=== PATIENT | male | born 1980 | race Hispanic/Latino ===

== ENCOUNTER 2019-12-05 13:57 | Emergency (ER) | payer SELFPAY ==
--- NOTE | 2019-12-05 14:51 | Emergency Department Report ---
ED General Adult HPI - General Chief complaint: Psych Stated complaint: SUCIDIAL/HOMELESS PUI?: No Time Seen by Provider: 12/05/19 14:41 Source: patient, EMS ( EMS documentation not available at time of chart dictation ), RN notes reviewed, old records reviewed Mode of arrival: Ambulatory Limitations: No Limitations - History of Present Illness Initial comments: The patient was evaluated in the emergency department for symptoms described in the history of present illness. He/she was evaluated in the context of the global COVID-19 pandemic, which necessitated consideration that the patient might be at risk for infection with the virus that causes COVID-19. Institutional protocols and algorithms that pertain to the evaluation of patients at risk for COVID-19 are in a state of rapid change based on information released by regulatory bodies including the CDC and federal and state organizations. These policies and algorithms were followed during the patient's care in the emergency department. Please note that these policies, procedures and recommendations changed on a rapid basis. The patient is a 39-year-old gentleman who is not known to myself previously. He is brought to the hospital by emergency medical services. Patient was just seen at a local hospital today, [facility]. Ap parently, the patient was brought there by local law enforcement, when he was caught trying to steal alcohol. Apparently, law enforcement told the patient he could be taken to the hospital, or be taken to alf. The patient opted to go to the hospital. At the hospital, he reportedly complained of depression and vague suicidality without plan. He was reportedly not evaluated by a psychiatrist, a nd did not have laboratory studies obtained. He was reportedly observed in this department for a few hours, and then discharged. At some point in time, the patient recontacted emergency medical services, and complains to me of vague suicidality. He states he does not currently have access to guns or to firearms. He states he has not tried to overdose. He states he is homeless, and that he does not have any local family members. He states that he is hungry "can I watch TV and eat food?" Patient states he has been suicidal for "a long time." -: week(s) Improves with: none Worsens with: none - Related Data Allergies Allergy/AdvReac Type Severity Reaction Status Date / Time No Known Allergies Allergy Unverified 12/05/19 14:30 ED Review of Systems ROS: Stated complaint: SUCIDIAL/HOMELESS Other details as noted in HPI Constitutional: denies: fever Eyes: denies: eye discharge ENT: denies: epistaxis Respiratory: denies: cough Cardiovascular: denies: syncope Gastrointestinal: denies: abdominal pain Genitourinary: denies: dysuria Musculoskeletal: myalgia Psychiatric: depression, suicidal thoughts ED Past Medical Hx - Past Medical History Previous Medical History?: Yes Hx Psychiatric Treatment: Yes (depression,alcohol abuse) Additional medical history: chronic back, TBI x2 - Social History Smoking Status: Never Smoker Substance Use Type: None ED Physical Exam - General Limitations: No Limitations General appearance: alert, in no apparent distress - Head Head exam: Present: atraumatic, normocephalic - Eye Eye exam: Present: normal appearance, EOMI. Absent: nystagmus - ENT ENT exam: Present: normal exam, normal orophraynx, mucous membranes moist, normal external ear exam - Neck Neck exam: Present: normal inspection, full ROM. Absent: tenderness, meningismus - Respiratory Respiratory exam: Present: normal lung sounds bilaterally. Absent: respiratory distress, wheezes, rales, rhonchi, stridor, decreased breath sounds - Cardiovascular Cardiovascular Exam: Present: regular rate, normal rhythm, normal heart sounds. Absent: bradycardia, tachycardia, irregular rhythm, systolic murmur, diastolic murmur, rubs, gallop - GI/Abdominal GI/Abdominal exam: Present: soft. Absent: distended, tenderness, guarding, rebound, rigid, pulsatile mass - Rectal Rectal exam: Present: deferred - Extremities Exam Extremities exam: Present: normal inspection, full ROM, other (2+ pulses noted in the bilateral upper extremities. There is no long bony tenderness. The pelvis is stable. The muscular compartments are soft.). Absent: pedal edema, calf tenderness - Back Exam Back exam: Present: normal inspection, full ROM. Absent: tenderness, CVA tenderness (R), CVA tenderness (L), paraspinal tenderness, vertebral tenderness - Neurological Exam Neurological exam: Present: alert, oriented X3, other (No facial droop. Tongue midline. Extraocular movements intact bilaterally. Facial sensation intact to light touch in V1, V2, V3 distribution bilaterally. 5 and a 5 strength in 4 extremities. Sensation intact to light touch in 4 extremities.) - Psychiatric Psychiatric exam: Present: depressed, suicidal ideation - Skin Skin exam: Present: warm, dry, intact, normal color. Absent: rash ED Course Vital Signs 12/05/19 14:52 Temperature 98.3 F Pulse Rate 78 Respiratory 18 Rate Blood Pressure 110/80 [Right] O2 Sat by Pulse 96 Oximetry - Reevaluation(s) Reevaluation #1: 12/05/19 15:46 Laboratory studies unremarkable at this time, there is no evidence of emergent metabolic or toxicologic ingestion. At this point time, patient does not appear to have an emergent medical condition that would require hospitalization. He does not have a medical contraindication to discharge, psychiatric consultation, evaluation, and outpatient placement. Reevaluation #2: 12/05/19 19:03 Patient seen in conjunction with our mental health liaison/coordinator, who agrees that patient does not meet criteria for 1013 hold or involuntary placement. ED Medical Decision Making - Lab Data Result diagrams: 12/05/19 15:01 12/05/19 15:01 Vital Signs 12/05/19 14:52 Temperature 98.3 F Pulse Rate 78 Respiratory 18 Rate Blood Pressure 110/80 [Right] O2 Sat by Pulse 96 Oximetry Lab Results 12/05/19 12/05/19 12/05/19 Range/Units 15:01 15:01 15:01 Hgb 14.2 (11.8-15.2) gm/dl Hct 42.7 (35.5-45.6) % Plt Count 261 (140-440) K/mm3 Sodium 140 (137-145) mmol/L Potassium 4.1 (3.6-5.0) mmol/L Chloride 103.0 (98-107) mmol/L Carbon Dioxide 24 (22-30) mmol/L Anion Gap 17 mmol/L BUN 19 (9-20) mg/dL Creatinine 0.8 (0.8-1.3) mg/dL Estimated GFR > 60 ml/min BUN/Creatinine Ratio 24 % Glucose 109 H (75-100) mg/dL Calcium 9.4 (8.4-10.2) mg/dL Magnesium 2.10 (1.7-2.3) mg/dL Total Creatine Kinase 103 (55-170) units/L Salicylates < 0.3 L (2.8-20.0) mg/dL Acetaminophen (10.0-30.0) ug/mL Plasma/Serum Alcohol (0-0.07) % 12/05/19 12/05/19 Range/Units 15:01 15:01 Hgb (11.8-15.2) gm/dl Hct (35.5-45.6) % Plt Count (140-440) K/mm3 Sodium (137-145) mmol/L Potassium (3.6-5.0) mmol/L Chloride (98-107) mmol/L Carbon Dioxide (22-30) mmol/L Anion Gap mmol/L BUN (9-20) mg/dL Creatinine (0.8-1.3) mg/dL Estimated GFR ml/min BUN/Creatinine Ratio % Glucose (75-100) mg/dL Calcium (8.4-10.2) mg/dL Magnesium (1.7-2.3) mg/dL Total Creatine Kinase (55-170) units/L Salicylates (2.8-20.0) mg/dL Acetaminophen 5.0 L (10.0-30.0) ug/mL Plasma/Serum Alcohol < 0.01 (0-0.07) % - Medical Decision Making Differential diagnosis, including but not limited to: Depression, dysthymia, malingering, homelessness, secondary gain Assessment and plan: 39-year-old gentleman, who is afebrile, with reassuring vital signs, who is clinically sober, and homeless, with vague suicidality, this is his second evaluation in the same day. Patient has nonmodifiable risk factors, such as homelessness, patient is unlikely to benefit from being placed on 1013 hold or involuntary hold, as this will reinforce maladaptive behaviors, and is not likely to benefit patient. During my evaluation, the patient presents as alert and oriented, calm, cooperative, he does not appear to be in an acute psychiatric crisis. Appropriate screening laboratory studies will be obtained to exclude toxicologic ingestion, although I seriously doubt that the patient has ingested any lethal quantity of any substance. Psychiatric consultation will be obtained, and anticipate discharge with outpatient follow-up Critical care attestation.: If time is entered above; I have spent that time in minutes in the direct care of this critically ill patient, excluding procedure time. ED Disposition Clinical Impression: Homelessness, General medical exam Depression Qualifiers: Major depression recurrence: unspecified whether recurrent Major depression episode severity: unspecified Disposition: - TO HOME OR SELFCARE Is pt being admited?: No Does the pt Need Aspirin: No Condition: Stable Additional Instructions: Please follow-up with outpatient resources that were provided to the patient. Please follow-up with an outpatient primary care doctor within the next month. Please return to the emergency room right away with new pain, worsening pain, migration of pain, projectile vomiting, change in mental status, confusion, inability to tolerate liquid feeds, new, worsened or different symptoms not present on the initial emergency room evaluation HOMELESS RESOURCES: [facility] NEED HELP? If you are in need of help or know someone who does, please contact us [email or web address] call , or come to our offices at [address] [place] [address], Thursday-Thursday beginning at 8AM. [facility] Admission at 7am Thu to Thu Address: [address] [place] [address] Client Engagement [phone] Regular program admission occurs Thursday through Thursday at 7:00 amand operates on a first come, first serve basis.Because we cant anticipate program availability in advance andprogram spots are in high demand, we recommend arriving early. Space fills up fast! Next steps can include: Assignment to a [facility] program bed Connection to and placement in a partner program, or Referral to a partner agency [facility]: [facility] Ram[facility] Address: [address] [place] [address] How do I join the [facility] housing program? Our housing programs are offered based on availability. If you are looking to participate in our housing program, simply call [phone] to find out if we have available space. Since we do receive many calls, please allow up to 48 w[address]y rs for one of our housing specialists to return your call. If we do not have vacancies, we suggest callingthe [facility] hotline at 211 for additional housing options. [facility] Admission at 4:30pm daily Address: [address] [place] [id number] Outpatient COMMUNITY Behavioral Health Resources: [facility] ([facility]) [address] [place] [address] / [phone] Thursday thru Thursday - 8am - 5pm [facility] Address: [address] [place], [place] Thursday thru Thursday- 7am-2pm [facility] Address: [address] [place] [address] Thursday thrthursday: 8:30AM-5PM CRISIS RESOURCES [place] Crisis Line: Suicide Prevention Line: Crisis Text Line: Text START to 584155 Emergency: 911 [facility] is to take chronically homeless men and help them overcome their barriers, change them as human beings,making them productive and self- sufficient individuals. Each [facility] participant is housed at our facility for up to a year while they participate in transitional work (earning $7.40/hr for 30+ hours per week). All participants renounce dependency and remain drug and alcohol free. Personal support, case management, and workforce training is offered throughout the program. We also provide AA/NA Classes, GED classes, support in obtaining a transport truck driver's licenses,help setting up a bank account,and life skill preparation courses. IF A MAN IS COMMITTED TO BEING CLEAN, TO ADDRESSING THE PAST, AND TO WORKING, WE WILL HELP HIM GET A CONSTRUCTION SAFETY CONSULTANT JOB, TRANSPORTATION AND PERMANENT HOUSING WITHIN A YEAR. [facility] [address] [place], [place] [id number] [email or web address] Referrals: SHAMA ROBERTS MD [Staff Physician] - 3-5 Days [facility] [Provider Group] - 3-5 Days
[2019-12-05 15:12] LABS: Hematocrit 42.7 % (35.5-45.6); Hemoglobin 14.2 gm/dl (11.8-15.2)
[2019-12-05 15:39] LABS: BUN/Creatinine Ratio 24; Blood Urea Nitrogen 19 mg/dL (9-20); Calcium 9.4 mg/dL (8.4-10.2); Hemolysis Index 12
[2019-12-05 20:30] VITALS: BP 104/69
== END 2019-12-05 19:45 | disposition home or self-care (01) ==
LOC: ED 13:57
DX: F32.9 Major depressive disorder, single episode, unspecified (principal); Z59.0 Homelessness; Z00.01 Encounter for general adult medical examination with abnormal findings
CPT/HCPCS: 36415; 80048; 80320; 82550; 83735; 85014; 85018; 85049; G0480